=== PATIENT | male | born 1995 | race Caucasian/White ===

== ENCOUNTER 2016-09-06 03:31 | Emergency (ER) | payer OTHER | END 2016-09-06 04:30 | disposition left against medical advice (07) | LOC: ER1 03:31 | DX: S02.5XXA Fracture of tooth (traumatic), initial encounter for closed fracture (principal); S63.501A Unspecified sprain of right wrist, initial encounter; X58.XXXA Exposure to other specified factors, initial encounter | CPT/HCPCS: 99282 ==